=== PATIENT | female | born 1980 | race Caucasian/White ===

== ENCOUNTER 2022-12-19 22:00 | Emergency (ER) | payer MEDICAID ==
[~2022-12-19] VITALS: Ht 162.6 cm; Wt 59.0 kg
--- NOTE | 2022-12-19 22:31 | NUR ---
Dr. Perez in room exmining patient.
[2022-12-19] MEDS ORDERED: HYDROCODONE/APAP 5-325MG TABLET ONE (22:40)
[2022-12-19] MEDS ORDERED: LIDOCAINE 2%-EPI 1:100,000 20 ML VIAL ONE (22:42)
[2022-12-19] MEDS ORDERED: HYDROCODONE/APAP 5-325MG TABLET PO ONE (22:45)
[2022-12-19] MEDS ORDERED: LIDOCAINE 1%-EPI 1:100,000 20 ML VIAL IJ ONE (22:45)
[2022-12-19] MEDS ORDERED: CEFI400C4 PO (23:46)
[2022-12-19] MEDS ORDERED: CLIN300C12 PO (23:46)
--- NOTE | 2022-12-20 00:01 | NUR ---
Patient discharged to home in stable condition. Written and verbal after care instructions given. Patient verbalizes understanding of instructions. Stressed follow up or return to ER for worsening s/s. Patient walked out with steady gait.
[2022-12-20 00:20] VITALS: BP 155/65
== END 2022-12-20 00:06 | disposition home or self-care (01) ==
LOC: ER 22:00
DX: N75.1 Abscess of Bartholin's gland (principal); N75.0 Cyst of Bartholin's gland; Z79.2 Long term (current) use of antibiotics
CPT/HCPCS: A4663